=== PATIENT | male | born 1990 | race Caucasian/White ===

== ENCOUNTER 2017-02-28 20:43 | Emergency (ER) | payer OTHER ==
[~2017-02-28] VITALS: Ht 172.7 cm; Wt 88.5 kg
[2017-02-28 20:50] VITALS: BP_SYST 124
[2017-02-28] MEDS ORDERED: GASTROGRAFIN 120 ML ONE (22:35)
[2017-02-28 22:36] LABS: BASOPHILS # (AUTO) 0.1 K/uL (0.0-0.2); BASOPHILS % (AUTO) 1.1 % (0.0-2.0); EOSINOPHILS # (AUTO) 0.1 K/uL (0.0-0.4); EOSINOPHILS % (AUTO) 0.7 % (0.0-4.0); HEMOGLOBIN 16.5 g/dL (14.0-18.0); LYMPHOCYTES # (AUTO) 0.5 K/uL (1.0-5.5); LYMPHOCYTES % (AUTO) 5.1 % (20.5-51.5); MEAN CORPUSCULAR HEMOGLOBIN 25 pg (27-31); MEAN CORPUSCULAR HGB CONC 32 % (32-36); MEAN CORPUSCULAR VOLUME 77 fL (79.0-98.0); MONOCYTES # (AUTO) 0.4 K/uL (0.0-1.0); MONOCYTES % (AUTO) 3.9 % (1.7-9.3); NEUTROPHILS % (AUTO) 89.2 % (40.0-70.0); PLATELET COUNT (AUTO) 180 K/uL (130-430); RED BLOOD CELL COUNT(AUTO) 6.59 MIL/uL (4.2-6.2); RED CELL DISTRIBUTION WIDTH 12.7 % (9.0-15.0); WHITE BLOOD COUNT (AUTO) 10.1 K/uL (4.8-10.8)
[2017-02-28] MEDS: LORazepam 2 MG/ML VIAL (FOR ER USE) IVP ONE (22:39)
[2017-02-28] MEDS: NACL 0.9% 1,000 ML IV ONE (22:39)
[2017-02-28] MEDS: PROCHLORPERAZINE EDISYLATE 10 MG/2 ML VIAL IVP ONE (22:40)
[2017-02-28] MEDS: KETOROLAC TROMETHAMINE 30 MG VIAL IVP ONE (22:40)
[2017-02-28 23:38] LABS: CALCIUM 10.4 mg/dL (8.4-11.0); CREATININE 1.49 mg/dL (0.55-1.30); POTASSIUM 3.9 mmol/L (3.5-5.1)
[2017-02-28 23:43] LABS: ALBUMIN 5.3 g/dL (3.4-4.8); TOTAL BILIRUBIN 0.9 mg/dL (0.0-1.0); TOTAL PROTEIN, SERUM 9.2 g/dL (6.4-8.3)
[2017-03-01 00:04] VITALS: BP_SYST 120
== END 2017-03-01 00:04 | disposition home or self-care (01) ==
LOC: SED 20:43
DX: T88.59XA Other complications of anesthesia, initial encounter (principal); R11.10 Vomiting, unspecified; R19.7 Diarrhea, unspecified; Z88.2 Allergy status to sulfonamides; Z88.1 Allergy status to other antibiotic agents
CPT/HCPCS: 36415; 71010; 74220; 80053; 84484; 85025; 93005; 96361; 96374; 96375; 99285; J0780; J1885; J2060; J7030; Q9963